=== PATIENT | female | born 1990 | race Caucasian/White ===

== ENCOUNTER 2019-11-30 09:36 | Day surgery (SDC) | payer OTHER ==
[~2019-11-30 09:36] MED LIST: DIPRIVAN 200 MG/20 ML IV ONE; Ketamine HCl 50 MG/ML ONE
[2019-11-30] MEDS ORDERED: Depo-Medrol 40 MG/ML IM ONE (09:37)
[2019-11-30] MEDS ORDERED: Sodium Chloride 0.9(Preservative Free) 10 ML IJ ONE (09:37)
--- NOTE | 2019-11-30 12:55 | XRAY ---
Indication: Left L4-S1 transforaminal ALINA. Intraoperative fluoroscopy was provided for 37 seconds. 4 digital spot images submitted for interpretation demonstrates posterior needle tips projecting over the expected left L4 and L5 nerve roots. Small amount of contrast injected for needle tip placement. Correlate with intraoperative findings/report.
--- NOTE | 2019-11-30 12:57 | XRAY ---
37 seconds fluoroscopy time in surgery for left L4-S1 transforaminal ALINA.
[2019-11-30] MEDS ORDERED: Lactated Ringers 1,000 ML IV ONE (15:58)
== END 2019-11-30 12:31 | disposition home or self-care (01) ==
LOC: SDC-PAIN 09:36
PROVIDERS: ATTEND Psychiatry & Neurology Pain Medicine
DX: M54.16 Radiculopathy, lumbar region (principal); D64.9 Anemia, unspecified; F41.8 Other specified anxiety disorders; Z79.899 Other long term (current) drug therapy
CPT/HCPCS: 64483; 64484; 72100; 77003; 84703; J1030; J2704; Q9966

== ENCOUNTER 2020-08-01 13:17 | Day surgery (SDC) | payer OTHER ==
[2020-08-01] MEDS ORDERED: Sodium Chloride 0.9(Preservative Free) 10 ML IJ ONE (13:18)
[2020-08-01] MEDS ORDERED: Depo-Medrol 40 MG/ML IM ONE (13:18)
[2020-08-01] MEDS ORDERED: Xylocaine 1% Vial 30 ML PF IJ ONE (13:18)
[2020-08-01] MEDS ORDERED: Decadron 4 MG INJ IV ONE (13:18)
[2020-08-01] MEDS ORDERED: DIPRIVAN 200 MG/20 ML IV ONE ×2 (14:52→14:54)
[2020-08-01] MEDS ORDERED: MORPHINE SULFATE 10 MG/ML ONE (15:11)
[2020-08-01] MEDS ORDERED: Lactated Ringers 1,000 ML IV ONE (16:05)
--- NOTE | 2020-08-01 16:55 | XRAY ---
Indication: Left L4-S1 transforaminal ALINA. Intraoperative fluoroscopy provided for 26 seconds. 3 digital spot image submitted for interpretation demonstrate posterior needle tips projecting over the expected left L4 and L5 nerve roots. Small amount of contrast injected for needle tip placement. Correlate with intraoperative findings/report.
--- NOTE | 2020-08-01 16:57 | XRAY ---
Indication: Left piriformis muscle injection. Intraoperative fluoroscopy provided for 22 seconds. Single digital spot image obtained prone submitted for interpretation demonstrate posterior needle tip projecting over the expected left piriformis muscle. Small amount of contrast injected for needle tip placement. Correlate with intraoperative findings/report.
--- NOTE | 2020-08-01 17:03 | XRAY ---
26 seconds of fluoroscopy was used in surgery for a left L4-L5, L5-S1 transforaminal ALINA.
--- NOTE | 2020-08-01 17:03 | XRAY ---
22 seconds of fluoroscopy was used in surgery for a left piriformis muscle injection.
== END 2020-08-01 15:21 | disposition home or self-care (01) ==
LOC: SDC-PAIN 13:17
PROVIDERS: ATTEND Psychiatry & Neurology Pain Medicine
DX: M54.16 Radiculopathy, lumbar region (principal); M79.18 Myalgia, other site; D64.9 Anemia, unspecified; F41.8 Other specified anxiety disorders; Z79.899 Other long term (current) drug therapy
CPT/HCPCS: 20552; 64483; 64484; 72100; 72170; 77002; 77003; 84703; J1030; J1100; J2001; J2270; J2704; Q9966